=== PATIENT | male | born 1985 | race Two or more races ===

== ENCOUNTER 2022-01-10 05:36 | Day surgery (SDC) | payer OTHER ==
[2022-01-10] MEDS ORDERED: NEXIUM 24HR20 MG PO (10:38)
== END 2022-01-10 12:10 | disposition home or self-care (01) ==
LOC: AMB-ENDOS 05:36
PROVIDERS: ATTEND Surgery
DX: K31.7 Polyp of stomach and duodenum (principal); K44.9 Diaphragmatic hernia without obstruction or gangrene; K20.90 Esophagitis, unspecified without bleeding; I10 Essential (primary) hypertension; K76.0 Fatty (change of) liver, not elsewhere classified; J45.909 Unspecified asthma, uncomplicated